=== PATIENT | female | born 1940 | race Caucasian/White ===

== ENCOUNTER 2021-10-07 06:12 | Inpatient (IN) | payer OTHER ==
[~2021-10-07] VITALS: Ht 165.1 cm; Wt 74.1 kg
[2021-10-07] VITALS (11 sets, daily range): BP systolic 117–146; BP diastolic 64–97
[~2021-10-07 06:12] MED LIST: BACI1CAP5 PO; DIPH25CA66 PO; IODI1MIS XX; LOSA-69 PO; MAGN400C3 PO; MENA100T PO; OMEGCAP2 OR; VITA200T2 PO; ZINC50TA7 PO; [UNRECOGNIZED DRUG - CODE] PO
[2021-10-07] MEDS ORDERED: BUPIVACAINE W/ EPINEPH 0.5% INJ 50ML MDV IJ ONE (07:05)
[2021-10-07] MEDS ORDERED: CLINDAMYCIN 900MG IV 50 ML IV ONE (07:05)
[2021-10-07] MEDS ORDERED: TRANEXAMIC ACID 20 ML ONE (07:05)
[2021-10-07] MEDS ORDERED: ROPIVACAINE 0.5% (5MG/ML) 20ML AMPULE IJ ONE (07:05)
[2021-10-07] MEDS ORDERED: TETRACAINE 1% INJ 2 ML VIAL IJ ONE (07:21)
[2021-10-07] MEDS ORDERED: MORPHINE SULF PF 5 MG/10 ML VIAL ONE (07:25)
[2021-10-07] MEDS ORDERED: KETOROLAC TROMETH 30 MG/ML 1ML VIAL ONE (07:27)
[2021-10-07] MEDS ORDERED: VANCOMYCIN HCL 1000 MG VL ONE (07:27)
[2021-10-07] MEDS ORDERED: fentaNYL CITRATE 100 MCG/2 ML VL ONE (07:31)
[2021-10-07] MEDS ORDERED: MIDAZOLAM HCL 2MG/2ML 2ml VIAL (1mg/ml) ONE (07:32)
[2021-10-07] MEDS ORDERED: NALOXONE HCL 0.4 MG/ML VIAL IV PRN (08:15)
[2021-10-07] MEDS ORDERED: DexAMETHasone SOD PHOS 10MG/1ML VIAL INJ IV PRN (08:15)
[2021-10-07] MEDS ORDERED: ONDANSETRON HCL 4 MG/2 ML VIAL IV PRN (08:15)
[2021-10-07] MEDS ORDERED: NALBUPHINE HCL 10 MG/1ml INJECTION SUBCUT ONE (08:15)
[2021-10-07] MEDS ORDERED: HYDROmorphone HCL 2 MG/ML VL/or syr IV PRN ×2 (08:15→10:00)
[2021-10-07] MEDS ORDERED: KETAMINE HCL 10 ML ONE (08:38)
[2021-10-07] MEDS ORDERED: ONDANSETRON HCL 4 MG/2 ML VIAL ONE (08:45)
[2021-10-07] MEDS ORDERED: PROPOFOL 10 MG/ML 20 ML IV ONE (08:45)
[2021-10-07] MEDS: EPINEPHrine HCL 1 MG/1 ML AMP ONE (09:23)
[2021-10-07] MEDS: LOSARTAN POTASSIUM 50 MG TAB PO SCH (10:00)
[2021-10-07] MEDS: D5W/LACTATED RINGERS 1,000 ML IV SCH ×2 (10:00→20:00)
[2021-10-07] MEDS: PREGABALIN 25 MG CAP PO SCH ×2 (10:00→22:17)
[2021-10-07] MEDS ORDERED: oxyCODONE HCL 5MG TAB PO PRN ×2 (10:00)
[2021-10-07] MEDS: KETOROLAC TROMETH 30 MG/ML 1ML VIAL IV SCH ×2 (11:31→17:29)
[2021-10-07] MEDS: ACETAMINOPHEN 325 MG TAB PO SCH ×2 (11:37→17:29)
[2021-10-07] MEDS ORDERED: CLINDAMYCIN 600 MG/4 ML VL IM SCH (14:00)
[2021-10-07] MEDS: CLINDAMYCIN 600MG IV 50 ML IV SCH ×2 (14:53→22:17)
[2021-10-07] MEDS ORDERED: diphenhdrAMINE HCL 25 MG CAP PO PRN (22:00)
[2021-10-08] VITALS (13 sets, daily range): BP systolic 90–133; BP diastolic 49–109
[2021-10-08] MEDS: ACETAMINOPHEN 325 MG TAB PO SCH ×4 (01:41→12:01)
[2021-10-08] MEDS: KETOROLAC TROMETH 30 MG/ML 1ML VIAL IV SCH ×4 (01:41→12:01)
[2021-10-08] MEDS: EPINEPHrine HCL 1 MG/1 ML AMP ONE (03:35)
[2021-10-08] MEDS: D5W/LACTATED RINGERS 1,000 ML IV SCH ×2 (04:48→15:27)
[2021-10-08 06:43] LABS: Basophils # (auto) 0 10 ^3/uL (0-0.2); Basophils % (auto) 0.5 % (0.0-2.0); Eosinophils # (auto) 0.2 10 ^3/uL (0-0.8); Eosinophils % (auto) 5.8 % (0.0-7.0); Hematocrit 35.1 % (36.0-46.0); Hemoglobin 11.7 g/dL (12.2-16.2); Lymphocytes # (auto) 0.7 10 ^3/uL (0.4-5.4); Lymphocytes % (auto) 18.1 % (10.0-50.0); Mean Corpuscular Hemoglobin 30.9 pg (28.0-32.0); Mean Corpuscular Hgb Conc. 33.4 g/dL (32.0-36.0); Mean Corpuscular Volume 92.5 fL (80.0-100.0); Monocytes # (auto) 0.4 10 ^3/uL (0-1.3); Monocytes % (auto) 10.5 % (0.0-12.0); Neutrophils # (auto) 2.5 10 ^3/uL (1.6-8.6); Neutrophils % (auto) 65.1 % (37.0-80.0); Red Cell Distribution Width 14.3 % (11.8-14.3); White Blood Cell 3.9 10^3/uL (4.4-10.8)
[2021-10-08 06:51] LABS: Calcium 8.6 mg/dL (8.5-10.1); Potassium 4.1 mmol/L (3.5-5.1)
[2021-10-08 06:53] LABS: BUN/Creatinine Ratio 26.1
[2021-10-08] MEDS: PREGABALIN 25 MG CAP PO SCH (09:47)
[2021-10-08] MEDS: LOSARTAN POTASSIUM 50 MG TAB PO SCH (09:48)
[2021-10-08] MEDS ORDERED: ASPirin 81 mg TAB PO SCH (10:00)
== END 2021-10-08 17:10 | disposition home health service (06) | DRG 470 ==
LOC: SUR 06:12 → TELE 10:15 → TELE-WESTW 13:51
PROVIDERS: ADMIT Orthopaedic Surgery; ATTEND Orthopaedic Surgery
PROC: 0SRC069 Replacement of Right Knee Joint with Oxidized Zirconium on Polyethylene Synthetic Substitute, Cemented, Open Approach (ICD-10-PCS; principal; 2021-10-07 07:33)
DX: M17.11 Unilateral primary osteoarthritis, right knee (principal); Z20.822 Contact with and (suspected) exposure to COVID-19
CPT/HCPCS: 36415; 73562; 80048; 85025; 86850; 86900; 86901; 97110; 97116; 97530; G0378; J0171; J1885; J2250; J2405; J2704; J3490